=== PATIENT | female | born 1955 | race African-American/Black ===

== ENCOUNTER → 2016-09-04 | Outpatient (CLI) | payer OTHER ==
[~2016-09-04] MED LIST: ALEVE220 M1 PO; ANEXSIA 7.5/3251 TA1 PO; ASPIRIN EC81 M1 PO; CELEXA20 MG PO; COMBIVENT INH14.7 G1 INH; COREG3.125 MG PO; COREG6.25 MG PO; FUROSEMIDE40 MG PO; IBUPROFEN600 MG PO; K-DUR20 ME1 PO; LASIX20 MG PO; LEVOTHROID125 MCG PO; LISINOPRIL10 MG PO; LISINOPRIL20 MG PO; MELOXICAM15 MG PO; MOBIC15 MG PO; ORUDIS75 M1 PO; PAROXETINE HCL40 MG PO; SYNTHROID PO; TEGRETOL PO; TYLENOL PM PO
--- NOTE | ~2016-09-04 | CR173 ---
[facility] A Service of [facility] & [facility] RADIOLOGY TEXT RESULTS PATIENT: KULWINDER WOOD LOCATION: [facility] : 55 UNIT #: [id number] AGE: [address]: Camelia Live MD SEX: F ORDER DR: [id number] [facility] [address] [place], [place] [address] [id number] O MR#: [id number] Acc #: [id number] NAME: KULWINDER WOOD : 1955 SEX: F STUDY DATE/TIME: 09/04/2016 11:36 UNIT: [facility] ROOM: STUDY DESCRIPTION: CR Knee 3 Views Rt Attending Physician: Camelia Live M.D. Referring Physician: Camelia Live M.D. Ordering Physician: Camelia Live M.D. Primary Care Physician: Elie Rincon M.D. MEDICAL IMAGING REPORT This report is preliminary unless electronic signature is present EXAM Right knee 3 views, 09/04/2016 HISTORY Right knee pain for 3 years. No known injury, osteoarthritis right knee. FINDINGS 3 views of the right knee demonstrate no fracture. There is degenerative narrowing of the medial compartment of the knee with osteophytic spurring bordering the medial compartment. The bones are normally mineralized. There is no joint effusion. IMPRESSION Degenerative change involving the medial compartment of the right knee. No acute abnormality. Dictated by... Jean Marie Pedraza M.D. THIS IS AN ELECTRONICALLY VERIFIED REPORT Jean Marie Pedraza M.D. at 09/05/2016 3:39 PM LAURA/blanche TD: 09/04/2016 23:41 JOB #: [id number] MEDICAL IMAGING REPORT Page 1 of 1 COPY
--- NOTE | ~2016-09-04 | CR172 ---
[facility] A Service of [facility] & [facility] RADIOLOGY TEXT RESULTS PATIENT: KULWINDER WOOD LOCATION: [facility] : 55 UNIT #: [id number] AGE: [address]: Camelia Live MD SEX: F ORDER DR: [id number] [facility] [address] [place], [place] [address] [id number] O MR#: [id number] Acc #: [id number] NAME: KULWINDER WOOD : 1955 SEX: F STUDY DATE/TIME: 09/04/2016 11:36 UNIT: [facility] ROOM: STUDY DESCRIPTION: CR Knee 3 Views Lt Attending Physician: Camelia Live M.D. Referring Physician: Camelia Live M.D. Ordering Physician: Camelia Live M.D. Primary Care Physician: Elie Rincon M.D. MEDICAL IMAGING REPORT This report is preliminary unless electronic signature is present EXAM Left knee 3 views, 09/04/2016 HISTORY Left knee pain for 3 years, osteoarthritis left knee. No known injury. FINDINGS Findings 3 views of the left knee demonstrate no fracture. There is degenerative change with narrowing of the medial compartment of the knee with a marginal osteophytes bordering the medial compartment. The bones are normally mineralized. There is no joint effusion. IMPRESSION Degenerative change involving the medial compartment of the left knee. No acute abnormality. Dictated by... Jean Marie Pedraza M.D. THIS IS AN ELECTRONICALLY VERIFIED REPORT Jean Marie Pedraza M.D. at 09/05/2016 3:39 PM LAURA/blanche TD: 09/05/2016 00:04 JOB #: [id number] MEDICAL IMAGING REPORT Page 1 of 1 COPY
== END | disposition home or self-care (01) ==
LOC: CRAD 11:18
DX: M17.0 Bilateral primary osteoarthritis of knee (principal)
CPT/HCPCS: 73562